=== PATIENT | female | born 1985 | race Caucasian/White ===

== ENCOUNTER → 2017-07-03 | Outpatient (CLI) | payer BC | END | disposition home or self-care (01) | LOC: GMAM 10:56 | PROVIDERS: ATTEND Family Medicine | DX: E04.9 Nontoxic goiter, unspecified (principal) ==

== ENCOUNTER → 2017-07-03 | Outpatient (CLI) | payer OTHER | END | disposition home or self-care (01) | LOC: GMAM 18:58 | PROVIDERS: ATTEND Family Medicine | DX: R31.21 Asymptomatic microscopic hematuria (principal) ==

== ENCOUNTER → 2018-12-07 | Outpatient (CLI) | payer OTHER ==
--- NOTE | 2018-12-07 17:48 | US ---
EXAM DESCRIPTION: Breast,Bilateral: Ultrasound CLINICAL HISTORY: 33 yearsFemaleAXILLARY LYMPHADENOPATHY axillary pain. COMPARISON: None. TECHNIQUE: Transcutaneous scanning of the bilateral breasts utilizing cruz-scale and Doppler modes. Scanning performed by the welder fabricator ; observation by Dr. eLster. FINDINGS: Ultrasound: Scanning in the axilla on the left breast. Mostly fatty echotexture. Minimal fibroglandular tissues. Anechoic circumscribed cyst with wider than tall orientation and posterior acoustic enhancement. Dimensions are 6.5 x 4.6 mm. Other structures most likely cysts. One measures 7.1 x 6.5 mm. A third cyst measures 7.7 x 4.0 mm. No dominant solid mass. No parenchymal edema or large calcifications. No overlying skin changes. Scanning of the right breast in the region of pain in the right axilla. Mostly fatty echotexture. Minimal fibroglandular tissues. No dominant solid mass or distinct cyst. No parenchymal edema or large calcifications. No overlying skin changes. Normal vascularity. IMPRESSION: Benign exam. Left axillary cysts. BIRAD CATEGORY: 2 BENIGN FINDINGS. RECOMMENDATIONS: FOLLOW UP: Routine digital bilateral mammographic screening, beginning at age 40. Any additional breast imaging ordered for this current condition should be based upon additional clinical or laboratory findings. Written communication explaining the IMPRESSION and follow-up, will be mailed to the patient and referring health care provider. The FINDINGS and the FOLLOW-UP plan were reviewed in person with the patient after the examination. According to the [employer], yearly mammograms are recommended starting at age 40 and continuing as long as a woman is in good health. Any breast change noted on a breast self-exam should be reported promptly to the patient's healthcare provider. Breast MRI is recommended for women with an approximately 20-25% or greater lifetime risk of breast cancer, including women with a strong family history of breast or ovarian cancer and women who have been treated for Hodgkin's disease. A negative breast imaging report should not delay tissue diagnosis in patients with significant clinical history or physical findings. Extremely dense breast tissue limits the sensitivity of digital mammography. Electronically signed by: Aidan Lester MD 12/07/2018 5:46 PM CDT
== END ==
LOC: US 15:52
PROVIDERS: ATTEND Nurse Practitioner Family
DX: R59.0 Localized enlarged lymph nodes (principal); N60.12 Diffuse cystic mastopathy of left breast